=== PATIENT | female | born 1945 | race Caucasian/White ===

== ENCOUNTER 2018-10-18 12:44 | Emergency (ER) | payer OTHER ==
[~2018-10-18] VITALS: Ht 157.5 cm; Wt 54.9 kg
[~2018-10-18 12:44] MED LIST: ARIPIPRAZOLE2 MG; BUPROPION HCL150 M1 PO; CARBIDOPA-LEVO1 EA10; FLONASE16 GM NASAL; FOLIC ACID1 MG PO; LORATADINE10 MG PO; NAMENDA10 MG; NAMENDA10 MG PO; Neurin-Sl Tablet Sl SL; SINEMET 25-1001 EACH; SINEMET 25-1001 EACH PO; SURFAK240 M1 PO; TOPROL XL25 M1 PO; WELLBUTRIN SR150 MG; ZOFRAN4 MG PO
[2018-10-18] MEDS ORDERED: COZAAR50 MG (13:12)
[2018-10-18] MEDS ORDERED: DILTIAZEM ER90 MG (13:12)
== END 2018-10-18 14:37 | disposition home or self-care (01) ==
LOC: ER 12:44
DX: G57.02 Lesion of sciatic nerve, left lower limb (principal)